=== PATIENT | male | born 2000 | race Hispanic/Latino ===

== ENCOUNTER → 2025-01-15 | Outpatient (CLI) | payer BC ==
--- NOTE | 2025-01-16 04:04 | HMCIMG ---
EXAM: CR Chest, 1 view CLINICAL HISTORY: Chest pain. COMPARISON: None provided. FINDINGS: The lungs show no infiltrates or other acute findings. No pleural effusion or pneumothorax. The cardiomediastinal silhouette is within normal limits. No acute osseous abnormality. IMPRESSION: No acute cardiopulmonary process is evident. /[place]
--- NOTE | 2025-01-16 04:06 | HMCIMG ---
EXAM: CR Entire Spine, 6 views. CLINICAL HISTORY: Scoliosis evaluation. COMPARISON: None provided. FINDINGS: There is about 8 degree levocurvature of the cervicothoracic spine, 10 degree dextrocurvature of the thoracolumbar spine, and 8 degree levocurvature of the lumbosacral spine. Normal intervertebral disc spaces. Normal vertebral body heights. No acute fracture. The soft tissues are within normal limits. The included lungs are clear. IMPRESSION: There is about 8 degree levocurvature of the cervicothoracic spine, 10 degree dextrocurvature of the thoracolumbar spine, and 8 degree levocurvature of the lumbosacral spine. /[place]
== END | disposition home or self-care (01) ==
LOC: RAH 13:17
PROVIDERS: ATTEND Internal Medicine
DX: M43.8X7 Other specified deforming dorsopathies, lumbosacral region (principal); M43.8X3 Other specified deforming dorsopathies, cervicothoracic region; M41.9 Scoliosis, unspecified; R07.89 Other chest pain
CPT/HCPCS: 71046; 72082